=== PATIENT | female | born 1990 | race Caucasian/White ===

== ENCOUNTER 2024-02-27 00:01 | Emergency (ER) | payer BC, SELFPAY ==
[2024-02-27 00:07] VITALS: BP 108/74
[2024-02-27 00:28] VITALS: BMI 17.0
--- NOTE | 2024-02-27 00:30 | EDRN ---
Patient brought back and changed in to paper scrubs
[2024-02-27 00:46] LABS: % Basophils 0.3 % (0-2); % Eosinophils 4.1 % (0-6); % Immature Granulocytes 0.3 % (0-0.5); % Lymphocytes 34.5 % (20.5-51.1); % Monocytes 7.1 % (1.7-9.3); % Neutrophils 53.7 % (42.2-75.2); Absolute Eosinophils 0.3 10^3/uL (0-0.7); Absolute Lymphocytes 2.5 10^3/uL (1.2-3.4); Absolute Monocytes 0.5 10^3/uL (0.1-0.6); Absolute Neutrophils 3.9 10^3/uL (1.4-6.5); Hematocrit 38.1 % (37.0-47.0); Hemoglobin 13.5 g/dL (12.0-16.0); Mean Corp Hgb Conc. 35.4 g/dL (33.0-37.0); Mean Corpuscular Hgb 30.4 pg (27.0-31.0); Mean Corpuscular Volume 85.8 fL (81.0-99.0); Mean Platelet Volume 11.5 fL (7.4-10.4); Nucleated Red Blood Cells % 0 %; Platelet Count 245 10^3/uL (130-400); Red Blood Cell Count 4.44 10^6/uL (4.20-5.40); Red Cell Dist. Width 12.6 % (11.5-14.5); White Blood Cell Count 7.2 10^3/uL (4.8-10.8)
[2024-02-27 00:58] LABS: Amphetamines Negative (Negative); Barbiturates Negative (Negative); Benzodiazepines Negative (Negative); Buprenorphine Negative (Negative); Cocaine Negative (Negative); Marijuana Negative (Negative); Methadone Negative (Negative); Methamphetamines Negative (Negative); Opiates Negative (Negative); Phencyclidine Negative (Negative); Tricyclic Antidepressants Negative (Negative)
[2024-02-27 01:00] LABS: Blood Urea Nitrogen 11 mg/dl (7-17); Calcium 9.7 mg/dl (8.4-10.2); Carbon Dioxide 28 mmol/L (22-30); Chloride 101 mmol/L (98-107); Estimated Creatinine Clearance 94 ml/min; Glucose 98 mg/dl (70-99); HCG, Serum Qualitative Screen Negative; Potassium 3.2 mmol/L (3.5-5.1); Sodium 137 mmol/L (135-145); eGFR > 60.00
[2024-02-27 01:25] LABS: Alcohol None Detected
--- NOTE | 2024-02-27 01:25 | ED.GENMED ---
History of Present Illness
General
Chief Complaint: Weight Changes
Source: patient
Exam Limitations: none
Time Seen by Provider: 02/27/24 00:27
Travel History
Have you had any contact with someone who has COVID-19?: No
Do you have any symptoms of coronavirus? Fever > 100 degrees, chills, cough, shortness of breath, sore throat, loss of taste or smell, muscle aches, or headache?: No
History of Present Illness
History of Present Illness:
33-year-old female brought here by mother under 302 paperwork. The patient has been fasting. She states that she has spiritual guides telling her to fast and able to tell her when to eat again. She plans on not eating ever again. She has not
eaten for 6 days. She is lost about 15 pounds and now weighs 95 pounds. Patient denies thoughts of harming self. Mother concerned about her physical and mental wellbeing.
Phy Exam
Physical Exam
Physical Exam:
General: Cachectic appearing female no acute respiratory distress
HEENT: Normocephalic atraumatic neck is supple
Heart: Regular rate and rhythm no murmurs
Lungs: Clear no wheeze or rales
Abdomen is soft nontender nondistended no guarding or rebound
Psychiatric exam: Seems somewhat distant. Denies thoughts of harming self or others. Admits to hearing her guide speak to her telling her not to eat.
Extremities: No cyanosis
Course
Orders/Labs/Results
Orders:
Orders
02/27/24 00:26
Test Result ONCE
02/27/24 00:29
Alcohol Urgent
Basic Metabolic Panel Urgent
Complete Blood Count/With Diff Urgent
HCG, Serum Qualitative Screen Urgent
02/27/24 00:39
Urine Drug Abuse Screen Urgent
Date Specimen was Collected: 02/27/24
Time Specimen was Collected: 00:26
02/27/24 08:14
Potassium Chloride [KCl] 40 meq PO NOW STA
Abnormal Lab Results
02/27/24
00:29
MPV 11.5 H fL
(7.4-10.4)
Potassium 3.2 L mmol/L
(3.5-5.1)
02/27/24 00:29
02/27/24 00:29
Vital Signs
Initial and Last Documented VS:
Initial Vital Signs
Temp Pulse Resp BP Pulse Ox
98.2 F 76 18 108/74 97
02/27/24 00:07 02/27/24 00:07 02/27/24 00:07 02/27/24 00:07 02/27/24 00:07
Last Documented Vital Signs
Temp Pulse Resp BP Pulse Ox
98.2 F 76 18 108/74 97
02/27/24 00:07 02/27/24 00:07 02/27/24 00:07 02/27/24 00:07 02/27/24 00:07
MDM/Problems Addressed
Differential Diagnosis Includes:
Patient is losing weight secondary to fasting. Consider electrolyte abnormality, underlying psychiatric illness versus anemia
Will check labs. I reviewed 302 paperwork.
*Critical Care Note
Total Time (30-74mins, 75-104mins- exclusive of procedures): Not Applicable
Update Note
Update Note:
Labs reviewed without significant finding. Potassium is 3.2. Kidney functions other electrolytes within normal limits. Urine drug screen negative. Spoke with crisis. Awaiting telepsych evaluation but is medically stable and has been
cooperative.
ED Attending Note
-
Portions of this chart may have been created with voice recognition software.� Occasional wrong word or��sound alike� substitutions may have occurred due to the inherent limitations of voice recognition software.
Discharge Plan
Departure
Patient Disposition: Psych Facility
Date of Disposition: 02/27/24
Time of Disposition: 02:11
Discharge Problem:
Psychosis
Prescriptions:
No Action
No Current Medications
0
Referrals:
NONE,* [Family Provider] -
Interventions
Interventions:
*Risk Screen - Suicide Last Done: 02/27/24 00:07
*General Assessment Last Done: 02/27/24 00:28
*Neglect/Abuse Screening Last Done: 02/27/24 00:07
ED- Fall Risk Assessment Last Done: 02/27/24 00:33
*ED COVID-19 Vaccine History Last Done: 02/27/24 00:28
*Nursing Disposition Last Done: 02/27/24 11:30
Discharge Date and Time
Discharge Date/Time: 02/27/24 11:20
Print Language: JAPANESE
--- NOTE | 2024-02-27 02:26 | EDRN ---
telepsych in progress
[2024-02-27] MEDS: KCL 40 MEQ PO (08:17)
== END 2024-02-27 11:20 ==
LOC: EMR 00:01
PROVIDERS: EMERGENCY PHYSICIAN Emergency Medicine
DX: F29 Unspecified psychosis not due to a substance or known physiological condition (principal); R64 Cachexia; Z59.48 Other specified lack of adequate food; T73.0XXA Starvation, initial encounter; Z72.4 Inappropriate diet and eating habits
CPT/HCPCS: 99285; 80048; 80306; 82077; 84703; 85025

== ENCOUNTER 2024-12-30 16:17 | Emergency (ER) | payer BC, SELFPAY ==
[2024-12-30 16:23] VITALS: BP 127/74
[2024-12-30 16:39] LABS: % Basophils 0.3 % (0-2); % Eosinophils 2.5 % (0-6); % Immature Granulocytes 0.4 % (0-0.5); % Lymphocytes 22.3 % (20.5-51.1); % Monocytes 7.1 % (1.7-9.3); % Neutrophils 67.4 % (42.2-75.2); Absolute Eosinophils 0.2 10^3/uL (0-0.7); Absolute Lymphocytes 2.1 10^3/uL (1.2-3.4); Absolute Monocytes 0.7 10^3/uL (0.1-0.6); Absolute Neutrophils 6.2 10^3/uL (1.4-6.5); Hematocrit 38.5 % (37.0-47.0); Hemoglobin 12.7 g/dL (12.0-16.0); Mean Corpuscular Hgb 30.9 pg (27.0-31.0); Mean Corpuscular Volume 93.7 fL (81.0-99.0); Mean Platelet Volume 10.9 fL (7.4-10.4); Nucleated Red Blood Cells % 0 %; Platelet Count 276 10^3/uL (130-400); Red Blood Cell Count 4.11 10^6/uL (4.20-5.40); Red Cell Dist. Width 14.7 % (11.5-14.5); White Blood Cell Count 9.2 10^3/uL (4.8-10.8)
[2024-12-30 16:53] LABS: HCG, Serum Qualitative Screen Negative
[2024-12-30 16:57] LABS: ALT (SGPT) 57 U/L (0-35); AST (SGOT) 41 U/L (14-36); Albumin 4.5 g/dl (3.5-5.0); Alkaline Phosphatase 66 U/L (38-126); Blood Urea Nitrogen 15 mg/dl (7-17); Carbon Dioxide 31 mmol/L (22-30); Chloride 100 mmol/L (98-107); Glucose 85 mg/dl (70-99); Lipase 349 U/L (23-300); Sodium 139 mmol/L (135-145); Total Bilirubin 0.6 mg/dl (0.2-1.3); eGFR > 60.00
--- NOTE | 2024-12-30 17:36 | ED.GENMED ---
History of Present Illness
General
Chief Complaint: Abdominal Symptoms
Time Seen by Provider: 12/30/24 17:11
History of Present Illness
History of Present Illness:
34-year-old female without significant past medical history presenting for abdominal pain and bloating. Patient reports for the past 2 weeks she has been having bloating and pain. Does note that symptoms started after a fast where she was fasting
food and water. She has no she then started to eat food that she had not eaten in a while and then symptoms began. She has been fasting on and off for the past year for confucianism reasons. Denies any abdominal surgeries in the past. Denies any
symptoms. Last menstrual period was a week ago. Denies chest pain or difficulty breathing. Denies vomiting. Does note some constipation. Denies additional acute medical complaints
Phy Exam
Physical Exam
Physical Exam:
General: Well-appearing, no clinical signs of dehydration, nontoxic and in no acute distress
HEENT: protecting airway
Neck: appears supple
CV: Normal heart rate, regular rhythm
Resp: No accessory muscle use, no increased work of breathing, lungs clear to auscultation bilaterally
Abd: Mild distention with generalized nonfocal tenderness
Extremities: No deformities, no swelling
Neuro: alert, no focal neurologic deficit
: deferred
Rectal: deferred
Psych: Normal affect
Skin: Intact
Course
Orders/Labs/Results
Orders:
Orders
12/30/24 16:26
Test Result ONCE
12/30/24 16:28
Complete Blood Count/With Diff Urgent
Comprehensive Metabolic Panel Urgent
HCG, Serum Qualitative Screen Urgent
Lipase Urgent
12/30/24 17:31
CT Abd/pelvis W Iv Cont Urgent
Comment:
Reason For Exam: bloating and generalized pain
12/30/24 19:03
Urinalysis Reflex To Culture Urgent
Date Specimen was Collected: 12/30/24
Time Specimen was Collected: 19:02
Abnormal Lab Results
12/30/24
16:28
RBC 4.11 L 10^6/uL
(4.20-5.40)
RDW 14.7 H %
(11.5-14.5)
MPV 10.9 H fL
(7.4-10.4)
Absolute Monos (auto) 0.7 H 10^3/uL
(0.1-0.6)
Carbon Dioxide 31 H mmol/L
(22-30)
Creatinine 0.5 L mg/dL
(0.6-1.0)
AST 41 H U/L
(14-36)
ALT 57 H U/L
(0-35)
Lipase 349 H U/L
(23-300)
12/30/24 16:28
12/30/24 16:28
Vital Signs
Initial and Last Documented VS:
Initial Vital Signs
Temp Pulse Resp BP Pulse Ox
97.7 F 79 18 127/74 99
12/30/24 16:23 12/30/24 16:23 12/30/24 16:23 12/30/24 16:23 12/30/24 16:23
Last Documented Vital Signs
Temp Pulse Resp BP Pulse Ox
97.7 F 60 20 98/60 98
12/30/24 16:23 12/30/24 19:07 12/30/24 19:07 12/30/24 19:07 12/30/24 19:07
MDM/Problems Addressed
MDM/Problems Addressed:
34-year-old female without past medical history presenting for abdominal distention/bloating and pain for the past 2 weeks after fasting. Vital signs on arrival are normal.
On exam patient is resting comfortably, no acute distress. She is nontoxic. On abdominal exam however, does have some distention with generalized tenderness. Suspect symptoms could be secondary to recent fast. She may have some bloating from
reintroducing carbohydrates and other foods. Laboratory analysis obtained prior to my assessment. Mild elevation of lipase and transaminitis. For this reason we will proceed with CT abdominal imaging to rule out acute pathology.
19:10 -CT without significant acute pathology. There is mention of some fluid in the stomach, which may be secondary to gastritis. Otherwise no significant findings. Patient remained stable on reassessment. Feel stable for discharge with
outpatient primary care follow-up. Return precautions discussed and patient verbalized understanding
*Critical Care Note
Total Time (30-74mins, 75-104mins- exclusive of procedures): Not Applicable
ED Attending Note
-
Portions of this chart may have been created with voice recognition software.� Occasional wrong word or��sound alike� substitutions may have occurred due to the inherent limitations of voice recognition software.
Discharge Plan
Departure
Patient with high blood pressure during this ER visit?: No
Condition: Good
Discharge Problem:
Abdominal pain, Abdominal bloating
Instructions: Abdominal Pain, Gastritis - ED discharge instructions
Prescriptions:
No Action
No Current Medications
0
Referrals:
UNKNOWN - PT DOES,NOT KNOW [Family Provider] -
Activity Restrictions/Additional Instructions:
You were seen in the emergency department for abdominal pain and bloating
You were found to have normal blood work and unremarkable imaging of your abdomen. Your lipase was slightly elevated, which can indicate some mild inflammation to your pancreas. Please continue to drink fluids as tolerated.
Please follow-up closely with your primary care physician.
Return to the emergency department for any worsening of your symptoms, or any development of chest pain, difficulty breathing, abdominal pain with persistent vomiting and inability to tolerate food or liquid by mouth (concern for dehydration),
weakness, headache or confusion, fever greater than 100.4, or any additional symptoms that are concerning to you.
Thank you for choosing [facility].
Interventions
Interventions:
*Risk Screen - Suicide Last Done: 12/30/24 16:23
*General Assessment Last Done: 12/30/24 16:23
*Neglect/Abuse Screening Last Done: 12/30/24 16:23
*ED COVID-19 Vaccine History Last Done: 12/30/24 16:23
[facility] Assessment Last Done: 12/30/24 17:36
Discharge Date and Time
Print Language: ESTONIAN
[2024-12-30 19:07] VITALS: BP 98/60
[2024-12-30 19:18] LABS: Urine Albumin 1+ (Neg - Trace); Urine Bilirubin Negative (Negative); Urine Character Clear (Clear); Urine Color Yellow; Urine Glucose Negative (Negative); Urine Ketone Negative (Negative); Urine Leukocyte Negative (Negative); Urine Nitrite Negative (Negative); Urine Occult Blood Negative (Negative); Urine Specific Gravity 1.015 (<1.030); Urine Urobilinogen Negative (Neg - 1+); Urine pH 6.5 (5.0-9.0)
[2024-12-30 19:42] LABS: Urine Bacteria Moderate (Negative); Urine Red Blood Cell None Seen /HPF (0-2)
== END 2024-12-30 19:48 | disposition home or self-care (01) ==
LOC: EMR 16:17
PROVIDERS: Student in an Organized Health Care Education/Training Program; EMERGENCY PHYSICIAN Student in an Organized Health Care Education/Training Program
DX: R10.9 Unspecified abdominal pain (principal); R14.0 Abdominal distension (gaseous); K59.00 Constipation, unspecified
CPT/HCPCS: 99284; 74177; 80053; 81003; 81015; 83690; 84703; 85025; 87086; Q9967

== ENCOUNTER 2025-01-11 18:38 | Emergency (ER) | payer BC, SELFPAY ==
[2025-01-11 18:40] VITALS: BP 125/88
[2025-01-11 21:28] VITALS: BP 105/72
[2025-01-11 23:54] VITALS: BP 107/72
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
[2025-01-12 03:23] LABS: Amphetamines Negative (Negative); Barbiturates Negative (Negative); Benzodiazepines Negative (Negative); Buprenorphine Negative (Negative); Cocaine Negative (Negative); HCG, Urine Qualitative Screen Negative; Marijuana Negative (Negative); Methadone Negative (Negative); Methamphetamines Negative (Negative); Opiates Negative (Negative); Phencyclidine Negative (Negative); Tricyclic Antidepressants Negative (Negative)
[2025-01-12 08:00] VITALS: BP 115/71
--- NOTE | 2025-01-12 09:27 | EDRN ---
the pts breakfast has arrived
--- NOTE | 2025-01-12 09:47 | EDRN ---
per crisis Tanika Michele will accept the pt with electrolyte levels, this RN will notify Dr. Lawler
[2025-01-12 10:44] LABS: % Basophils 0.3 % (0-2); % Eosinophils 1.5 % (0-6); % Immature Granulocytes 0.3 % (0-0.5); % Lymphocytes 17.4 % (20.5-51.1); % Monocytes 4.8 % (1.7-9.3); % Neutrophils 75.7 % (42.2-75.2); Absolute Eosinophils 0.1 10^3/uL (0-0.7); Absolute Lymphocytes 1.6 10^3/uL (1.2-3.4); Absolute Monocytes 0.4 10^3/uL (0.1-0.6); Absolute Neutrophils 6.9 10^3/uL (1.4-6.5); Hematocrit 39.2 % (37.0-47.0); Hemoglobin 12.9 g/dL (12.0-16.0); Mean Corp Hgb Conc. 32.9 g/dL (33.0-37.0); Mean Corpuscular Hgb 30.9 pg (27.0-31.0); Mean Corpuscular Volume 93.8 fL (81.0-99.0); Mean Platelet Volume 10.4 fL (7.4-10.4); Nucleated Red Blood Cells % 0 %; Platelet Count 262 10^3/uL (130-400); Red Blood Cell Count 4.18 10^6/uL (4.20-5.40); Red Cell Dist. Width 14.4 % (11.5-14.5); White Blood Cell Count 9.1 10^3/uL (4.8-10.8)
[2025-01-12 11:04] LABS: ALT (SGPT) 35 U/L (0-35); AST (SGOT) 27 U/L (14-36); Albumin 4.5 g/dl (3.5-5.0); Alkaline Phosphatase 54 U/L (38-126); Blood Urea Nitrogen 10 mg/dl (7-17); Calcium 9.5 mg/dl (8.4-10.2); Carbon Dioxide 25 mmol/L (22-30); Chloride 102 mmol/L (98-107); Estimated Creatinine Clearance 106 ml/min; Glucose 136 mg/dl (70-99); Potassium 3.7 mmol/L (3.5-5.1); Sodium 136 mmol/L (135-145); Total Bilirubin 1.3 mg/dl (0.2-1.3); Total Protein 6.9 g/dl (6.3-8.2); eGFR > 60.00
[2025-01-12 12:00] VITALS: BP 110/81
[2025-01-12 16:45] VITALS: BP 115/81
== END 2025-01-12 16:45 ==
LOC: EMR 18:38
PROVIDERS: Emergency Medicine; EMERGENCY PHYSICIAN Emergency Medicine
DX: R63.0 Anorexia (principal); S80.212A Abrasion, left knee, initial encounter; S80.211A Abrasion, right knee, initial encounter; V88.8XXA Person injured in other specified noncollision transport accidents involving motor vehicle, nontraffic, initial encounter
CPT/HCPCS: 99285; 73564; 80053; 80306; 81025; 85025